=== PATIENT | female | born 1930 | race Caucasian/White ===

== ENCOUNTER 2016-12-19 12:11 | Emergency (ER) | payer OTHER | END 2016-12-19 13:52 | disposition home or self-care (01) | LOC: ER 12:11 | DX: M19.031 Primary osteoarthritis, right wrist (principal); K21.9 Gastro-esophageal reflux disease without esophagitis; I10 Essential (primary) hypertension; E78.5 Hyperlipidemia, unspecified; Z79.899 Other long term (current) drug therapy ==